=== PATIENT | female | born 1985 | race Caucasian/White ===

== ENCOUNTER 2017-11-23 18:25 | Inpatient (IN) | payer OTHER ==
[~2017-11-23] VITALS: Ht 167.6 cm; Wt 87.0 kg
[2017-11-29] MEDS: LACTATED RINGERS 1,000 ML IV SCH (02:00)
[2017-11-29] MEDS ORDERED: OXYTOCIN 30U/ 0.9% NaCL 500ML 500 ML IV PRN (21:21)
[2017-11-29] MEDS ORDERED: OXYTOCIN 30U/ 0.9% NaCL 500ML 500 ML IV ONE (21:21)
[2017-11-29] MEDS ORDERED: D5%-LACTATED RINGERS 1,000 ML IV SCH (21:24)
[2017-11-29] MEDS ORDERED: FENTANYL PF 100 MCG/2ML IVPush PRN (21:30)
[2017-11-29] MEDS ORDERED: ONDANSETRON 2MG/ML, 2ML IVPush PRN (21:30)
[2017-11-29] MEDS ORDERED: CALCIUM CARBONATE 500 MG TAB.CHEW PO PRN (21:30)
[2017-11-29] MEDS ORDERED: FENTANYL PF 100 MCG/2ML IV PRN (21:30)
[2017-11-29] MEDS ORDERED: OXYTOCIN 30U/ 0.9% NaCL 500ML 500 ML ONE (22:03)
[2017-11-29 22:12] LABS: BASOPHILS # (AUTO) 0.05 x10^3/uL (0-0.1); BASOPHILS % (AUTO) 1 % (0-1); EOSINOPHILS # (AUTO) 0.04 x10^3/uL (0-0.4); EOSINOPHILS % (AUTO) 1 % (1-7); LYMPHOCYTES # (AUTO) 1.92 x10^3/uL (1-3.4); LYMPHOCYTES % (AUTO) 30 % (22-44); MD NO; MEAN CORPUSCULAR HEMOGLOBIN 31.8 pg (27.0-34.8); MEAN CORPUSCULAR HGB CONC 33.3 g/dL (32.4-35.8); MEAN CORPUSCULAR VOLUME 95.4 fL (80-100); MEAN PLATELET VOLUME 10.5 fL (7.4-10.4); MONOCYTES # (AUTO) 0.39 x10^3/uL (0.2-0.8); MONOCYTES % (AUTO) 6 % (2-9); NEUTROPHILS # (AUTO) 3.96 x10^3/uL (1.8-6.8); NEUTROPHILS % (AUTO) 62 % (42-75); PLATELET COUNT 143 x10^3/uL (130-400); RED BLOOD COUNT 3.93 x10^6/uL (3.82-5.3); RED CELL DISTRIBUTION WIDTH 13.2 % (9.6-15.2)
[2017-11-30] MEDS ORDERED: BUPIVACAINE 0.25% ONE (09:18)
[2017-11-30] MEDS ORDERED: FENTANYL/BUPIV./NS/PF 250 ML EPIDCONT ONE (09:19)
[2017-11-30] MEDS: LACTATED RINGERS 1,000 ML IV SCH ×4 (09:42→21:24)
[2017-11-30] MEDS ORDERED: FENTANYL/BUPIV./NS/PF 250 ML EPIDCONT SCH (09:42)
[2017-11-30] MEDS ORDERED: LACTATED RINGERS 1,000 ML IVBOLUS PRN (10:00)
[2017-11-30] MEDS ORDERED: MISOPROSTOL 200 MCG TABLET ONE (19:09)
[2017-11-30] MEDS ORDERED: LIDOCAINE/PF 1%, 30ML ONE (19:09)
[2017-11-30] MEDS ORDERED: METOCLOPRAMIDE 5 MG/ML, 2ML ONE (19:10)
[2017-11-30] MEDS ORDERED: SODIUM CITRATE/CITRIC ACID 30 ML UDC ONE (19:10)
[2017-11-30 19:24] VITALS: BP 116/79
[2017-11-30] MEDS ORDERED: OXYTOCIN 30U/ 0.9% NaCL 500ML 500 ML ONE (19:33)
[2017-11-30] MEDS ORDERED: ONDANSETRON ODT 4 MG ONE (20:47)
[2017-11-30] MEDS ORDERED: ONDANSETRON 2MG/ML, 2ML ONE (20:48)
[2017-12-01] MEDS ORDERED: FENTANYL/BUPIV./NS/PF 250 ML EPIDCONT ONE (00:34)
[2017-12-01] MEDS: LACTATED RINGERS 1,000 ML IV SCH ×2 (01:42→03:23)
[2017-12-01] MEDS ORDERED: OXYTOCIN 30U/ 0.9% NaCL 500ML 500 ML ONE (05:04)
[2017-12-01] MEDS: OXYTOCIN 30U/ 0.9% NaCL 500ML 500 ML IV SCH ×2 (05:39→15:39)
[2017-12-01 05:55] VITALS: BP 106/73
[2017-12-01] MEDS ORDERED: METOCLOPRAMIDE 5 MG/ML, 2ML IV PRN (06:00)
[2017-12-01] MEDS ORDERED: MISOPROSTOL 200 MCG TABLET PR PRN (06:00)
[2017-12-01] MEDS ORDERED: BISACODYL 10 MG SUPP PR PRN (06:00)
[2017-12-01] MEDS ORDERED: IBUPROFEN 800 MG TABLET PO PRN (06:00)
[2017-12-01] MEDS ORDERED: GLYCERIN ADULT SUPP PR PRN (06:00)
[2017-12-01] MEDS: IBUPROFEN 600 MG TABLET PO PRN ×2 (06:00→15:28)
[2017-12-01] MEDS ORDERED: OXYcodone/APAP 5/325MG TABLET PO PRN ×2 (06:00)
[2017-12-01] MEDS ORDERED: CARBOPROST TROMETHAMINE 250 MCG/ML, 1ML IM PRN (06:00)
[2017-12-01] MEDS ORDERED: METHYLERGONOVINE 0.2 MG/ML IM PRN (06:00)
[2017-12-01] MEDS ORDERED: ONDANSETRON 2MG/ML, 2ML IV PRN (06:00)
[2017-12-01] MEDS ORDERED: ACETAMINOPHEN 325 MG TABLET PO PRN (06:00)
[2017-12-01 07:39] VITALS: BP 103/71
[2017-12-01] MEDS: DOCUSATE 100 MG CAPSULE PO PRN (09:35)
[2017-12-01] MEDS: PRENATAL VIT/IRON/FA 1 EACH TABLET PO SCH (09:35)
[2017-12-01 11:48] LABS: MEAN CORPUSCULAR HGB CONC 33.3 g/dL (32.4-35.8); MEAN CORPUSCULAR VOLUME 96.3 fL (80-100); MEAN PLATELET VOLUME 10.7 fL (7.4-10.4); PLATELET COUNT 109 x10^3/uL (130-400); RED BLOOD COUNT 3.45 x10^6/uL (3.82-5.3); RED CELL DISTRIBUTION WIDTH 13.5 % (9.6-15.2)
[2017-12-01 12:15] VITALS: BP 110/80
[2017-12-01 12:58] LABS: BASOPHILS # (AUTO) 0.02 x10^3/uL (0-0.1); BASOPHILS % (AUTO) 0 % (0-1); EOSINOPHILS # (AUTO) 0.01 x10^3/uL (0-0.4); EOSINOPHILS % (AUTO) 0 % (1-7); LYMPHOCYTES # (AUTO) 1.31 x10^3/uL (1-3.4); LYMPHOCYTES % (AUTO) 10 % (22-44); MD SCAN; MONOCYTES # (AUTO) 0.59 x10^3/uL (0.2-0.8); MONOCYTES % (AUTO) 4 % (2-9); NEUTROPHILS # (AUTO) 11.37 x10^3/uL (1.8-6.8); NEUTROPHILS % (AUTO) 86 % (42-75)
[2017-12-01 16:45] VITALS: BP 97/67
[2017-12-01 19:22] VITALS: BP 103/72
[2017-12-02 00:16] VITALS: BP 102/69
[2017-12-02 04:18] VITALS: BP 100/70
[2017-12-02 07:50] VITALS: BP 105/73
[2017-12-02] MEDS: PRENATAL VIT/IRON/FA 1 EACH TABLET PO SCH (07:55)
[2017-12-02] MEDS: IBUPROFEN 600 MG TABLET PO PRN ×2 (07:55→14:57)
[2017-12-02] MEDS: DOCUSATE 100 MG CAPSULE PO PRN (07:55)
[2017-12-02 20:00] VITALS: BP 103/70
[2017-12-03] MEDS: PRENATAL VIT/IRON/FA 1 EACH TABLET PO SCH (07:44)
[2017-12-03] MEDS: DOCUSATE 100 MG CAPSULE PO PRN (07:44)
[2017-12-03 07:45] VITALS: BP 102/71
[2017-12-03] MEDS ORDERED: IBUP200T49 PO (10:46)
== END 2017-12-03 13:00 | disposition home or self-care (01) | DRG 775 ==
LOC: LDIP 11-29 21:08 → 2NW 12-01 05:30
PROVIDERS: ADMIT Student in an Organized Health Care Education/Training Program; ATTEND Student in an Organized Health Care Education/Training Program
PROC: 10E0XZZ Delivery of Products of Conception, External Approach (ICD-10-PCS; principal; 2017-12-01)
PROC: 0KQM0ZZ Repair Perineum Muscle, Open Approach (ICD-10-PCS; 2017-12-01)
PROC: 10907ZC Drainage of Amniotic Fluid, Therapeutic from Products of Conception, Via Natural or Artificial Opening (ICD-10-PCS; 2017-12-01)
PROC: 3E033VJ Introduction of Other Hormone into Peripheral Vein, Percutaneous Approach (ICD-10-PCS; 2017-12-01)
PROC: 3E0R3BZ Introduction of Anesthetic Agent into Spinal Canal, Percutaneous Approach (ICD-10-PCS; 2017-12-01)
PROC: 00HU33Z Insertion of Infusion Device into Spinal Canal, Percutaneous Approach (ICD-10-PCS; 2017-12-01)
DX: O48.0 Post-term pregnancy (principal); O70.1 Second degree perineal laceration during delivery; Z37.0 Single live birth; Z3A.40 40 weeks gestation of pregnancy; Z80.3 Family history of malignant neoplasm of breast; Z82.49 Family history of ischemic heart disease and other diseases of the circulatory system; Z83.3 Family history of diabetes mellitus; O71.89 Other specified obstetric trauma
CPT/HCPCS: 36415; J7121; 85025; 86850; 86900; J2405; J2590; J7120

== ENCOUNTER 2017-11-27 02:11 | Outpatient (CLI) | payer OTHER | END 2017-11-27 04:00 | disposition home or self-care (01) | LOC: LDOP 02:11 | PROVIDERS: ATTEND Student in an Organized Health Care Education/Training Program | DX: O62.9 Abnormality of forces of labor, unspecified (principal); Z3A.00 Weeks of gestation of pregnancy not specified | CPT/HCPCS: 59025; 99211; G0463 ==